=== PATIENT | male | born 1975 | race Hispanic/Latino ===

== ENCOUNTER → 2024-04-15 | Outpatient (REF) | payer BC ==
[~2024-04-15] MED LIST: IOPAMIDOL 370 MG/ML 100 ML INFUS..BTL INJ ONE; METOPROLOL TARTRATE 25 MG TAB ONE; METOPROLOL TARTRATE INJ 1 MG/ML VIAL ONE; NITROGLYCERIN 0.4 MG SUBL ONE; SODIUM CHLORIDE 0.9% 100 ML ONE
[2024-04-15 08:42] LABS: CREATININE, SERUM 0.78 mg/dL (0.72-1.25)
== END ==
LOC: CT 07:24
PROVIDERS: ATTEND Internal Medicine Cardiovascular Disease
DX: R06.02 Shortness of breath (principal); R07.9 Chest pain, unspecified
CPT/HCPCS: 36415; 75574; 82565; 84520; J7050; Q9967

== ENCOUNTER → 2024-10-09 | Day surgery (SDC) | payer BC ==
[~2024-10-09] MED LIST changes: +ALEVE220 M1; +ASPIRIN81 MG PO; +IBUPROFEN200 MG PO; -IOPAMIDOL 370 MG/ML 100 ML INFUS..BTL INJ ONE; +LIDOCAINE HCL 2% LOCAL INJ 5 ML SDV VIAL INJ ONE; +LIPITOR20 MG PO; +LISINOPRIL10 MG PO; +MELOXICAM7.5 MG PO; +METHOCARBAMOL750 MG PO; -METOPROLOL TARTRATE 25 MG TAB ONE; -METOPROLOL TARTRATE INJ 1 MG/ML VIAL ONE; -NITROGLYCERIN 0.4 MG SUBL ONE; +PROPOFOL IV EMULSION 10 MG/ML 20 ML VIAL ONE; -SODIUM CHLORIDE 0.9% 100 ML ONE; +TYLENOL EXTRA500 MG PO; +VENTOLIN HFA18 GM INH
[2024-10-09] MEDS: LACTATED RINGER'S 1,000 ML ONE (07:25)
[2024-10-09 08:57] VITALS: TEMP 97
[2024-10-09 09:25] VITALS: BP 139/81; PULSE 68; RESP 15; O2SAT 100
== END | disposition home or self-care (01) ==
LOC: OR 06:11
PROVIDERS: ATTEND Internal Medicine Gastroenterology
DX: Z12.11 Encounter for screening for malignant neoplasm of colon (principal); K57.30 Diverticulosis of large intestine without perforation or abscess without bleeding; K64.8 Other hemorrhoids; Z71.3 Dietary counseling and surveillance; I10 Essential (primary) hypertension; Z78.9 Other specified health status; Z68.42 Body mass index [BMI] 45.0-49.9, adult; Z01.810 Encounter for preprocedural cardiovascular examination; G47.33 Obstructive sleep apnea (adult) (pediatric); E78.5 Hyperlipidemia, unspecified; J45.909 Unspecified asthma, uncomplicated; E66.9 Obesity, unspecified; G89.29 Other chronic pain; Z88.8 Allergy status to other drugs, medicaments and biological substances; Z79.1 Long term (current) use of non-steroidal anti-inflammatories (NSAID); Z79.82 Long term (current) use of aspirin; Z79.899 Other long term (current) drug therapy
CPT/HCPCS: 45378; 93005; J2003; J2704; J7121